=== PATIENT | male | born 1950 | race Caucasian/White ===

== ENCOUNTER 2021-02-05 12:28 | Outpatient (CLI) | payer MEDICARE, BC ==
[2021-02-05 12:57] LABS: INR-International Normal Ratio 1.7; PTT 35.6 sec (22.9-36.1)
[2021-02-05 13:00] LABS: #Eosinphils 0.2 thou/uL (0.0-0.7); #Lymphocytes 1.7 thou/uL (1.20-3.40); #Monocytes 0.4 thou/uL (0.11-0.59); #Neutrophils 2.7 thou/uL (1.40-6.50); %Basophils 0.8 % (0.0-1.0); %Eosinophils 3.2 % (0.0-10.0); %Lymphocytes 34.4 % (21.0-51.0); %Monocytes 7.6 % (0.0-10.0); %Neutrophils 54.1 % (42.0-75.0); Hemoglobin 11.6 g/dL (14.0-18.0); Mean Corpuscular HGB CONC 29.8 g/dL (32.0-36.0); Mean Corpuscular Hemoglobin 27.9 pg (27.0-31.0); Mean Corpuscular Volume 93.6 fL (78.0-98.0); Mean Platelet Volume 11.5 fL (7.4-10.4); Platelet Count 126 thou/uL (130-400); RBC Distribution Width 12.8 % (11.5-14.5); Red Blood Cell (RBC) Count 4.15 mill/uL (4.70-6.10)
[2021-02-05 13:09] LABS: ALT (SGPT) 15 U/L (8-55); AST (SGOT) 18 U/L (5-34); Albumin 3.2 g/dL (3.4-4.8); Alkaline Phosphatase 80 U/L (40-110); Anion Gap 12 mmol/L (10-20); BUN (Urea Nitrogen) 20 mg/dL (8.4-25.7); Calc. Creatinine Clearance 0 mL/min (70-130); Calcium 8.3 mg/dL (7.8-10.44); Carbon Dioxide 27 mmol/L (23-31); Cardiac Risk 3.2 (Less than 4.5); Chloride 107 mmol/L (98-107); Cholesterol 116 mg/dl (< 200 Desired); Globulin 3.1 g/dL (2.4-3.5); Glucose 69 mg/dL (83-110); HDL Cholesterol 36 mg/dL (>60 Neg Risk); LDL Cholesterol, Calculated 73 mg/dL; Potassium 4.3 mmol/L (3.5-5.1); Protein, Total 6.3 g/dL (5.8-8.1); Sodium 142 mmol/L (136-145); Triglycerides 33 mg/dL (Less than 150)
[2021-02-05 13:16] LABS: Anisocytosis SLIGHT = 6-15 cells (100X) (0-5/hpf); Platelet Morphology Comment Appears Adequate
[2021-02-05 17:23] LABS: Free T4 (Free Thyroxine) 1.12 ng/dL (0.70-1.48)
[2021-02-05 17:24] LABS: Vitamin D, 25 Hydroxy 32.7 ng/ml (> 30.0)
== END 2021-02-05 12:29 | disposition home or self-care (01) ==
LOC: MADLAB 12:28
PROVIDERS: ATTEND Family Medicine
DX: Z51.81 Encounter for therapeutic drug level monitoring (principal); E78.2 Mixed hyperlipidemia; R29.6 Repeated falls; G20 Parkinson's disease; F02.80 Dementia in other diseases classified elsewhere, unspecified severity, without behavioral disturbance, psychotic disturbance, mood disturbance, and anxiety; E03.9 Hypothyroidism, unspecified; D69.6 Thrombocytopenia, unspecified; E55.9 Vitamin D deficiency, unspecified; Z79.01 Long term (current) use of anticoagulants
CPT/HCPCS: 36415; 80053; 80061; 82306; 84439; 84443; 85025; 85610; 85730

== ENCOUNTER 2022-10-10 15:53 | Inpatient (IN) | payer MEDICARE, BC ==
[2022-10-10 20:16] LABS: INR-International Normal Ratio 1.3; Prothrombin Time 16.8 sec (12.0-14.7)
[2022-10-10] MEDS ORDERED: Warfarin Sodium 2 MG TAB PO SCH (20:45)
[2022-10-10] MEDS: Furosemide 20 MG TAB PO SCH (21:38)
[2022-10-10] MEDS: Amiodarone 200 MG TAB PO SCH (21:38)
[2022-10-10] MEDS: busPIRone HCl 5 MG TAB PO SCH (21:38)
[2022-10-10] MEDS: Cholecalciferol 1,000 UNITS (25 MCG) TAB PO SCH (21:38)
[2022-10-10] MEDS: Carbidopa/Levodopa 25-100 mg Tablet PO SCH (21:39)
[2022-10-10] MEDS: Midodrine HCl 5 MG TAB PO SCH (21:39)
[2022-10-10] MEDS: Gabapentin 300 MG CAP PO SCH (21:39)
[2022-10-10] MEDS: traZODone HCl 50 MG TAB PO SCH (21:39)
[2022-10-11] MEDS: Carvedilol 3.125 MG TAB PO SCH ×4 (01:15→22:45)
[2022-10-11] MEDS ORDERED: Silver Sulfadiazine 50 GM TUBE ONE (01:36)
[2022-10-11 05:27] LABS: INR-International Normal Ratio 1.4; Prothrombin Time 17.7 sec (12.0-14.7)
[2022-10-11] MEDS: Levothyroxine Sodium 100 MCG TAB PO SCH (06:27)
[2022-10-11] MEDS: Cholecalciferol 1,000 UNITS (25 MCG) TAB PO SCH ×3 (09:55→20:57)
[2022-10-11] MEDS: Amiodarone 200 MG TAB PO SCH ×3 (09:55→20:58)
[2022-10-11] MEDS: busPIRone HCl 5 MG TAB PO SCH ×3 (09:55→20:58)
[2022-10-11] MEDS: Carbidopa/Levodopa 25-100 mg Tablet PO SCH ×4 (09:55→20:58)
[2022-10-11] MEDS: Furosemide 20 MG TAB PO SCH ×3 (09:55→20:58)
[2022-10-11] MEDS: Midodrine HCl 5 MG TAB PO SCH ×4 (09:55→20:58)
[2022-10-11] MEDS: ZINC OXIDE 20% TOP SCH ×3 (09:56→21:30)
[2022-10-11] MEDS ORDERED: Warfarin Sodium 2 MG TAB PO SCH (17:00)
[2022-10-11] MEDS: traZODone HCl 50 MG TAB PO SCH (20:58)
[2022-10-11] MEDS: Gabapentin 300 MG CAP PO SCH (20:59)
[2022-10-12] MEDS: Levothyroxine Sodium 100 MCG TAB PO SCH (05:57)
[2022-10-12 06:03] LABS: INR-International Normal Ratio 1.4; Prothrombin Time 17.9 sec (12.0-14.7)
[2022-10-12] MEDS: busPIRone HCl 5 MG TAB PO SCH ×2 (09:34→21:07)
[2022-10-12] MEDS: Amiodarone 200 MG TAB PO SCH (09:34)
[2022-10-12] MEDS: Carvedilol 3.125 MG TAB PO SCH ×2 (09:34→21:07)
[2022-10-12] MEDS: Midodrine HCl 5 MG TAB PO SCH ×3 (09:34→21:10)
[2022-10-12] MEDS: Furosemide 20 MG TAB PO SCH ×2 (09:34→21:08)
[2022-10-12] MEDS: Cholecalciferol 1,000 UNITS (25 MCG) TAB PO SCH ×2 (09:34→21:07)
[2022-10-12] MEDS: Carbidopa/Levodopa 25-100 mg Tablet PO SCH ×3 (09:34→21:07)
[2022-10-12] MEDS: ZINC OXIDE 20% TOP SCH ×3 (09:35→21:10)
[2022-10-12] MEDS ORDERED: Warfarin Sodium 2 MG TAB PO SCH (17:00)
[2022-10-12] MEDS ORDERED: Warfarin Sodium 5 MG TAB PO SCH (17:00)
[2022-10-12] MEDS: Gabapentin 300 MG CAP PO SCH (21:08)
[2022-10-12] MEDS: traZODone HCl 50 MG TAB PO SCH (21:10)
[2022-10-12] MEDS: Melatonin 3 MG TAB PO PRN (21:11)
[2022-10-13] MEDS: Levothyroxine Sodium 100 MCG TAB PO SCH (05:17)
[2022-10-13 05:38] LABS: INR-International Normal Ratio 1.6; Prothrombin Time 19.5 sec (12.0-14.7)
[2022-10-13] MEDS: Midodrine HCl 5 MG TAB PO SCH ×3 (08:40→20:27)
[2022-10-13] MEDS: Cholecalciferol 1,000 UNITS (25 MCG) TAB PO SCH ×2 (08:40→20:27)
[2022-10-13] MEDS: Amiodarone 200 MG TAB PO SCH (08:40)
[2022-10-13] MEDS: Carbidopa/Levodopa 25-100 mg Tablet PO SCH ×3 (08:41→20:26)
[2022-10-13] MEDS: busPIRone HCl 5 MG TAB PO SCH ×2 (08:41→20:27)
[2022-10-13] MEDS: Carvedilol 3.125 MG TAB PO SCH ×2 (09:01→20:29)
[2022-10-13] MEDS: Furosemide 20 MG TAB PO SCH ×2 (09:01→20:28)
[2022-10-13] MEDS: ZINC OXIDE 20% TOP SCH (11:15)
[2022-10-13] MEDS ORDERED: Lansoprazole 3 MG/ML ORAL SUSPENSION PO SCH (11:45)
[2022-10-13] MEDS: Warfarin Sodium 5 MG TAB PO SCH (15:59)
[2022-10-13] MEDS ORDERED: Warfarin Sodium 2 MG TAB PO SCH (17:00)
[2022-10-13] MEDS: traZODone HCl 50 MG TAB PO SCH (20:27)
[2022-10-13] MEDS: Gabapentin 300 MG CAP PO SCH (20:27)
[2022-10-13] MEDS: Melatonin 3 MG TAB PO PRN (20:31)
[2022-10-14] MEDS: Levothyroxine Sodium 100 MCG TAB PO SCH (05:17)
[2022-10-14 05:21] LABS: Hemoglobin 11.7 g/dL (14.0-18.0); Platelet Count 167 10x3/uL (130-400)
[2022-10-14 05:36] LABS: INR-International Normal Ratio 1.7; Prothrombin Time 20.8 sec (12.0-14.7)
[2022-10-14] MEDS: Amiodarone 200 MG TAB PO SCH (08:10)
[2022-10-14] MEDS: Midodrine HCl 5 MG TAB PO SCH ×3 (08:10→21:16)
[2022-10-14] MEDS: Carbidopa/Levodopa 25-100 mg Tablet PO SCH ×3 (08:10→21:16)
[2022-10-14] MEDS: busPIRone HCl 5 MG TAB PO SCH ×2 (08:10→17:11)
[2022-10-14] MEDS: Carvedilol 3.125 MG TAB PO SCH ×2 (08:10→21:16)
[2022-10-14] MEDS: Cholecalciferol 1,000 UNITS (25 MCG) TAB PO SCH ×2 (08:10→21:17)
[2022-10-14] MEDS: Furosemide 20 MG TAB PO SCH ×2 (08:10→21:17)
[2022-10-14] MEDS: Lansoprazole 3 MG/ML ORAL SUSPENSION PO SCH (08:11)
[2022-10-14] MEDS: Senokot S 8.6-50 MG TAB PO PRN ×2 (15:01→21:18)
[2022-10-14] MEDS ORDERED: traZODone HCl 50 MG TAB PO SCH (17:00)
[2022-10-14] MEDS ORDERED: Warfarin Sodium 2 MG TAB PO SCH (17:00)
[2022-10-14] MEDS: Warfarin Sodium 5 MG TAB PO SCH (17:07)
[2022-10-14] MEDS: traZODone HCl 50 MG TAB PO SCH (21:16)
[2022-10-14] MEDS: Gabapentin 300 MG CAP PO SCH (21:17)
[2022-10-14] MEDS: Melatonin 3 MG TAB PO PRN (21:18)
[2022-10-15 05:25] LABS: INR-International Normal Ratio 2.1
[2022-10-15] MEDS: Levothyroxine Sodium 100 MCG TAB PO SCH (05:36)
[2022-10-15] MEDS: Carbidopa/Levodopa 25-100 mg Tablet PO SCH ×3 (09:02→20:46)
[2022-10-15] MEDS: Amiodarone 200 MG TAB PO SCH (09:02)
[2022-10-15] MEDS: busPIRone HCl 5 MG TAB PO SCH ×2 (09:02→17:33)
[2022-10-15] MEDS: Cholecalciferol 1,000 UNITS (25 MCG) TAB PO SCH ×2 (09:02→20:46)
[2022-10-15] MEDS: Midodrine HCl 5 MG TAB PO SCH ×3 (09:02→20:44)
[2022-10-15] MEDS: Furosemide 20 MG TAB PO SCH ×2 (09:03→20:44)
[2022-10-15] MEDS: Carvedilol 3.125 MG TAB PO SCH ×2 (09:03→20:46)
[2022-10-15] MEDS: Lansoprazole 3 MG/ML ORAL SUSPENSION PO SCH (09:03)
[2022-10-15] MEDS: Warfarin Sodium 5 MG TAB PO SCH (17:33)
[2022-10-15] MEDS ORDERED: Lantiseptic Ointment 130 GM JAR TOP PRN (20:30)
[2022-10-15] MEDS: Melatonin 3 MG TAB PO PRN (20:44)
[2022-10-15] MEDS: Senokot S 8.6-50 MG TAB PO PRN (20:44)
[2022-10-15] MEDS: traZODone HCl 50 MG TAB PO SCH (20:44)
[2022-10-15] MEDS: Gabapentin 300 MG CAP PO SCH (20:45)
[2022-10-15] MEDS: Lantiseptic Ointment 130 GM JAR TOP SCH (20:48)
[2022-10-15] MEDS ORDERED: Clotrimazole 1% Cream 15 GM TUBE TOP PRN (20:52)
[2022-10-15] MEDS: Clotrimazole 1% Cream 15 GM TUBE TOP SCH (21:06)
[2022-10-16 05:13] LABS: INR-International Normal Ratio 2.1; Prothrombin Time 24.5 sec (12.0-14.7)
[2022-10-16] MEDS: Levothyroxine Sodium 100 MCG TAB PO SCH (05:55)
[2022-10-16] MEDS: Carvedilol 3.125 MG TAB PO SCH ×2 (09:08→20:37)
[2022-10-16] MEDS: Lansoprazole 3 MG/ML ORAL SUSPENSION PO SCH (09:08)
[2022-10-16] MEDS: Cholecalciferol 1,000 UNITS (25 MCG) TAB PO SCH ×2 (09:08→20:34)
[2022-10-16] MEDS: Furosemide 20 MG TAB PO SCH ×2 (09:08→20:37)
[2022-10-16] MEDS: Amiodarone 200 MG TAB PO SCH (09:08)
[2022-10-16] MEDS: Carbidopa/Levodopa 25-100 mg Tablet PO SCH ×3 (09:08→20:35)
[2022-10-16] MEDS: Midodrine HCl 5 MG TAB PO SCH ×3 (09:09→20:36)
[2022-10-16] MEDS: busPIRone HCl 5 MG TAB PO SCH ×2 (09:09→16:52)
[2022-10-16] MEDS: Clotrimazole 1% Cream 15 GM TUBE TOP SCH ×2 (09:09→20:37)
[2022-10-16] MEDS: Lantiseptic Ointment 130 GM JAR TOP SCH ×2 (09:09→20:37)
[2022-10-16] MEDS: Warfarin Sodium 5 MG TAB PO SCH (16:52)
[2022-10-16] MEDS: Melatonin 3 MG TAB PO PRN (20:34)
[2022-10-16] MEDS: Senokot S 8.6-50 MG TAB PO PRN (20:35)
[2022-10-16] MEDS: traZODone HCl 50 MG TAB PO SCH (20:35)
[2022-10-16] MEDS: Gabapentin 300 MG CAP PO SCH (20:36)
[2022-10-17] MEDS: Levothyroxine Sodium 100 MCG TAB PO SCH (05:32)
[2022-10-17 05:33] LABS: Hemoglobin 11.4 g/dL (14.0-18.0); Platelet Count 162 10x3/uL (130-400)
[2022-10-17 05:34] LABS: INR-International Normal Ratio 2.4; Prothrombin Time 26.8 sec (12.0-14.7)
[2022-10-17 05:45] LABS: Anion Gap 14 mmol/L (10-20); BUN (Urea Nitrogen) 19 mg/dL (8.4-25.7); Calc. Creatinine Clearance 94 mL/min (70-130); Calcium 8.5 mg/dL (7.8-10.44); Carbon Dioxide 28 mmol/L (23-31); Chloride 103 mmol/L (98-107); Estimated GFR 93; Glucose 82 mg/dL (83-110); Potassium 3.9 mmol/L (3.5-5.1); Sodium 141 mmol/L (136-145)
[2022-10-17] MEDS: Cholecalciferol 1,000 UNITS (25 MCG) TAB PO SCH ×2 (08:27→20:41)
[2022-10-17] MEDS: busPIRone HCl 5 MG TAB PO SCH ×3 (08:28→16:43)
[2022-10-17] MEDS: Senokot S 8.6-50 MG TAB PO PRN (08:28)
[2022-10-17] MEDS: Midodrine HCl 5 MG TAB PO SCH ×3 (08:28→20:41)
[2022-10-17] MEDS: Amiodarone 200 MG TAB PO SCH (08:28)
[2022-10-17] MEDS: Carbidopa/Levodopa 25-100 mg Tablet PO SCH ×3 (08:29→20:41)
[2022-10-17] MEDS: Lansoprazole 3 MG/ML ORAL SUSPENSION PO SCH (08:30)
[2022-10-17] MEDS: Clotrimazole 1% Cream 15 GM TUBE TOP SCH ×2 (08:33→20:43)
[2022-10-17] MEDS: Lantiseptic Ointment 130 GM JAR TOP SCH ×2 (08:34→20:52)
[2022-10-17] MEDS: Carvedilol 3.125 MG TAB PO SCH ×2 (09:00→20:20)
[2022-10-17] MEDS: Furosemide 20 MG TAB PO SCH ×2 (09:00→21:30)
[2022-10-17] MEDS ORDERED: Warfarin Sodium 2 MG TAB PO SCH (17:00)
[2022-10-17] MEDS: traZODone HCl 50 MG TAB PO SCH (20:42)
[2022-10-17] MEDS: Gabapentin 300 MG CAP PO SCH (20:42)
[2022-10-18 05:15] LABS: INR-International Normal Ratio 2.3; Prothrombin Time 26.3 sec (12.0-14.7)
[2022-10-18] MEDS: Levothyroxine Sodium 100 MCG TAB PO SCH (05:22)
[2022-10-18] MEDS: Lansoprazole 3 MG/ML ORAL SUSPENSION PO SCH (09:14)
[2022-10-18] MEDS: Midodrine HCl 5 MG TAB PO SCH ×3 (09:14→20:11)
[2022-10-18] MEDS: Carbidopa/Levodopa 25-100 mg Tablet PO SCH ×3 (09:14→20:11)
[2022-10-18] MEDS: Amiodarone 200 MG TAB PO SCH (09:15)
[2022-10-18] MEDS: Cholecalciferol 1,000 UNITS (25 MCG) TAB PO SCH ×2 (09:15→20:10)
[2022-10-18] MEDS: Lantiseptic Ointment 130 GM JAR TOP SCH ×2 (09:15→20:11)
[2022-10-18] MEDS: busPIRone HCl 5 MG TAB PO SCH ×2 (09:15→17:37)
[2022-10-18] MEDS: Clotrimazole 1% Cream 15 GM TUBE TOP SCH ×2 (09:17→20:11)
[2022-10-18] MEDS: Carvedilol 3.125 MG TAB PO SCH ×2 (10:22→20:10)
[2022-10-18] MEDS: Furosemide 20 MG TAB PO SCH (12:28)
[2022-10-18] MEDS ORDERED: Warfarin Sodium 2 MG TAB PO SCH ×2 (17:00)
[2022-10-18] MEDS: traZODone HCl 50 MG TAB PO SCH (20:11)
[2022-10-18] MEDS: Gabapentin 300 MG CAP PO SCH (20:12)
[2022-10-19 05:48] LABS: INR-International Normal Ratio 2.3; Prothrombin Time 26.3 sec (12.0-14.7)
[2022-10-19] MEDS: Levothyroxine Sodium 100 MCG TAB PO SCH (06:13)
[2022-10-19] MEDS: Lansoprazole 3 MG/ML ORAL SUSPENSION PO SCH (09:08)
[2022-10-19] MEDS: Carvedilol 3.125 MG TAB PO SCH ×2 (09:09→19:21)
[2022-10-19] MEDS: Midodrine HCl 5 MG TAB PO SCH ×3 (09:09→20:47)
[2022-10-19] MEDS: Carbidopa/Levodopa 25-100 mg Tablet PO SCH ×3 (09:09→20:46)
[2022-10-19] MEDS: Cholecalciferol 1,000 UNITS (25 MCG) TAB PO SCH ×2 (09:09→20:47)
[2022-10-19] MEDS: Amiodarone 200 MG TAB PO SCH (09:09)
[2022-10-19] MEDS: busPIRone HCl 5 MG TAB PO SCH ×2 (09:09→17:09)
[2022-10-19] MEDS: Clotrimazole 1% Cream 15 GM TUBE TOP SCH ×2 (09:10→20:48)
[2022-10-19] MEDS: Lantiseptic Ointment 130 GM JAR TOP SCH ×2 (09:10→20:49)
[2022-10-19] MEDS: Furosemide 20 MG TAB PO SCH (12:01)
[2022-10-19] MEDS ORDERED: Warfarin Sodium 2 MG TAB PO SCH (17:00)
[2022-10-19] MEDS: Warfarin Sodium 2 MG TAB PO SCH (17:09)
[2022-10-19] MEDS: Gabapentin 300 MG CAP PO SCH (20:47)
[2022-10-19] MEDS: traZODone HCl 50 MG TAB PO SCH (20:47)
[2022-10-20 05:26] LABS: #Basophils 0.1 thou/uL (0.0-0.2); #Eosinphils 0.1 thou/uL (0.0-0.7); #Lymphocytes 2.3 thou/uL (1.20-3.40); #Monocytes 0.7 thou/uL (0.11-0.59); #Neutrophils 2.7 thou/uL (1.40-6.50); %Eosinophils 1.8 % (0.0-10.0); %Lymphocytes 39.9 % (21.0-51.0); %Monocytes 11.1 % (0.0-10.0); %Neutrophils 46.3 % (42.0-75.0); Hemoglobin 11.6 g/dL (14.0-18.0); Mean Corpuscular HGB CONC 32.3 g/dL (32.0-36.0); Mean Corpuscular Hemoglobin 29.3 pg (27.0-31.0); Mean Corpuscular Volume 90.8 fl (78.0-98.0); Mean Platelet Volume 10.4 fL (7.4-10.4); Platelet Count 150 10x3/uL (130-400); Red Blood Cell (RBC) Count 3.95 mill/uL (4.70-6.10); White Blood Cell (WBC) Count 5.8 10x3/uL (4.8-10.8)
[2022-10-20 05:29] LABS: INR-International Normal Ratio 2.4; Prothrombin Time 27.6 sec (12.0-14.7)
[2022-10-20] MEDS: Levothyroxine Sodium 100 MCG TAB PO SCH (05:37)
[2022-10-20 05:41] LABS: Anion Gap 10 mmol/L (10-20); BUN (Urea Nitrogen) 20 mg/dL (8.4-25.7); Calc. Creatinine Clearance 94 mL/min (70-130); Calcium 8.7 mg/dL (7.8-10.44); Carbon Dioxide 29 mmol/L (23-31); Chloride 103 mmol/L (98-107); Estimated GFR 93; Glucose 79 mg/dL (83-110); Sodium 138 mmol/L (136-145)
[2022-10-20] MEDS: Lansoprazole 3 MG/ML ORAL SUSPENSION PO SCH (08:57)
[2022-10-20] MEDS: Carbidopa/Levodopa 25-100 mg Tablet PO SCH ×3 (08:58→20:35)
[2022-10-20] MEDS: Carvedilol 3.125 MG TAB PO SCH ×2 (08:58→20:35)
[2022-10-20] MEDS: Midodrine HCl 5 MG TAB PO SCH ×3 (08:58→20:34)
[2022-10-20] MEDS: Cholecalciferol 1,000 UNITS (25 MCG) TAB PO SCH ×2 (08:58→20:35)
[2022-10-20] MEDS: busPIRone HCl 5 MG TAB PO SCH ×2 (08:58→17:56)
[2022-10-20] MEDS: Amiodarone 200 MG TAB PO SCH (08:58)
[2022-10-20] MEDS: Clotrimazole 1% Cream 15 GM TUBE TOP SCH ×2 (09:03→20:37)
[2022-10-20] MEDS: Lantiseptic Ointment 130 GM JAR TOP SCH ×2 (09:03→20:38)
[2022-10-20] MEDS: Furosemide 20 MG TAB PO SCH (12:31)
[2022-10-20] MEDS: Warfarin Sodium 2 MG TAB PO SCH (17:57)
[2022-10-20] MEDS: Gabapentin 300 MG CAP PO SCH (20:35)
[2022-10-20] MEDS: traZODone HCl 50 MG TAB PO SCH (20:37)
[2022-10-20] MEDS: Melatonin 3 MG TAB PO PRN (23:20)
[2022-10-21] MEDS: Levothyroxine Sodium 100 MCG TAB PO SCH (05:49)
[2022-10-21] MEDS: busPIRone HCl 5 MG TAB PO SCH ×2 (08:59→17:01)
[2022-10-21] MEDS: Midodrine HCl 5 MG TAB PO SCH ×3 (08:59→20:25)
[2022-10-21] MEDS: Amiodarone 200 MG TAB PO SCH (08:59)
[2022-10-21] MEDS: Lansoprazole 3 MG/ML ORAL SUSPENSION PO SCH (09:00)
[2022-10-21] MEDS: Carbidopa/Levodopa 25-100 mg Tablet PO SCH ×3 (09:00→20:26)
[2022-10-21] MEDS: Cholecalciferol 1,000 UNITS (25 MCG) TAB PO SCH ×2 (09:00→20:25)
[2022-10-21] MEDS: Clotrimazole 1% Cream 15 GM TUBE TOP SCH ×2 (09:01→20:27)
[2022-10-21] MEDS: Lantiseptic Ointment 130 GM JAR TOP SCH ×2 (09:02→20:28)
[2022-10-21] MEDS: Carvedilol 3.125 MG TAB PO SCH ×2 (09:11→20:23)
[2022-10-21] MEDS: Furosemide 20 MG TAB PO SCH (16:02)
[2022-10-21] MEDS: Warfarin Sodium 2 MG TAB PO SCH (17:01)
[2022-10-21] MEDS: traZODone HCl 50 MG TAB PO SCH (20:25)
[2022-10-21] MEDS: Melatonin 3 MG TAB PO PRN (20:25)
[2022-10-21] MEDS: Gabapentin 300 MG CAP PO SCH (20:26)
[2022-10-22] MEDS: Levothyroxine Sodium 100 MCG TAB PO SCH (05:19)
[2022-10-22] MEDS: Cholecalciferol 1,000 UNITS (25 MCG) TAB PO SCH ×2 (09:14→20:11)
[2022-10-22] MEDS: Midodrine HCl 5 MG TAB PO SCH ×3 (09:14→20:11)
[2022-10-22] MEDS: Carbidopa/Levodopa 25-100 mg Tablet PO SCH ×3 (09:14→20:11)
[2022-10-22] MEDS: Amiodarone 200 MG TAB PO SCH (09:16)
[2022-10-22] MEDS: busPIRone HCl 5 MG TAB PO SCH ×2 (09:16→17:07)
[2022-10-22] MEDS: Lansoprazole 3 MG/ML ORAL SUSPENSION PO SCH (09:20)
[2022-10-22] MEDS: Carvedilol 3.125 MG TAB PO SCH ×2 (09:20→20:12)
[2022-10-22] MEDS: Lantiseptic Ointment 130 GM JAR TOP SCH ×2 (09:22→20:13)
[2022-10-22] MEDS: Clotrimazole 1% Cream 15 GM TUBE TOP SCH ×2 (09:22→20:13)
[2022-10-22] MEDS: Furosemide 20 MG TAB PO SCH (12:07)
[2022-10-22] MEDS: Warfarin Sodium 2 MG TAB PO SCH (17:07)
[2022-10-22] MEDS: Melatonin 3 MG TAB PO PRN (20:09)
[2022-10-22] MEDS: Gabapentin 300 MG CAP PO SCH (20:10)
[2022-10-22] MEDS: traZODone HCl 50 MG TAB PO SCH (20:10)
[2022-10-23 05:12] LABS: Hemoglobin 11.5 g/dL (14.0-18.0); Platelet Count 121 10x3/uL (130-400)
[2022-10-23 05:21] LABS: INR-International Normal Ratio 2.7
[2022-10-23] MEDS: Levothyroxine Sodium 100 MCG TAB PO SCH (05:31)
[2022-10-23] MEDS: Cholecalciferol 1,000 UNITS (25 MCG) TAB PO SCH ×2 (08:18→20:06)
[2022-10-23] MEDS: Amiodarone 200 MG TAB PO SCH (08:18)
[2022-10-23] MEDS: Carbidopa/Levodopa 25-100 mg Tablet PO SCH ×3 (08:18→20:06)
[2022-10-23] MEDS: Carvedilol 3.125 MG TAB PO SCH ×2 (08:18→20:07)
[2022-10-23] MEDS: Midodrine HCl 5 MG TAB PO SCH ×3 (08:18→20:06)
[2022-10-23] MEDS: busPIRone HCl 5 MG TAB PO SCH ×2 (08:18→16:59)
[2022-10-23] MEDS: Lantiseptic Ointment 130 GM JAR TOP SCH ×2 (08:19→20:07)
[2022-10-23] MEDS: Clotrimazole 1% Cream 15 GM TUBE TOP SCH ×2 (08:19→20:07)
[2022-10-23] MEDS: Lansoprazole 3 MG/ML ORAL SUSPENSION PO SCH (08:24)
[2022-10-23] MEDS: Furosemide 20 MG TAB PO SCH (12:18)
[2022-10-23] MEDS: Warfarin Sodium 2 MG TAB PO SCH (16:59)
[2022-10-23] MEDS: Melatonin 3 MG TAB PO PRN (20:05)
[2022-10-23] MEDS: Gabapentin 300 MG CAP PO SCH (20:06)
[2022-10-23] MEDS: traZODone HCl 50 MG TAB PO SCH (20:06)
[2022-10-24] MEDS: Levothyroxine Sodium 100 MCG TAB PO SCH (05:51)
[2022-10-24] MEDS: Amiodarone 200 MG TAB PO SCH (09:02)
[2022-10-24] MEDS: Midodrine HCl 5 MG TAB PO SCH ×3 (09:02→21:46)
[2022-10-24] MEDS: Cholecalciferol 1,000 UNITS (25 MCG) TAB PO SCH ×2 (09:02→21:46)
[2022-10-24] MEDS: Lansoprazole 3 MG/ML ORAL SUSPENSION PO SCH (09:02)
[2022-10-24] MEDS: busPIRone HCl 5 MG TAB PO SCH ×2 (09:02→17:05)
[2022-10-24] MEDS: Clotrimazole 1% Cream 15 GM TUBE TOP SCH ×2 (09:03→21:59)
[2022-10-24] MEDS: Lantiseptic Ointment 130 GM JAR TOP SCH ×2 (09:03→21:59)
[2022-10-24] MEDS: Carbidopa/Levodopa 25-100 mg Tablet PO SCH ×3 (09:04→22:00)
[2022-10-24] MEDS: Carvedilol 3.125 MG TAB PO SCH (09:09)
[2022-10-24] MEDS: Furosemide 20 MG TAB PO SCH ×2 (12:11→12:24)
[2022-10-24] MEDS: Warfarin Sodium 2 MG TAB PO SCH (17:06)
[2022-10-24] MEDS: traZODone HCl 50 MG TAB PO SCH (21:46)
[2022-10-24] MEDS: Gabapentin 300 MG CAP PO SCH (21:47)
[2022-10-25] MEDS: Levothyroxine Sodium 100 MCG TAB PO SCH (06:49)
[2022-10-25] MEDS: Lansoprazole 3 MG/ML ORAL SUSPENSION PO SCH (09:23)
[2022-10-25] MEDS: Carbidopa/Levodopa 25-100 mg Tablet PO SCH ×3 (09:24→21:17)
[2022-10-25] MEDS: Amiodarone 200 MG TAB PO SCH (09:24)
[2022-10-25] MEDS: Midodrine HCl 5 MG TAB PO SCH ×3 (09:24→21:18)
[2022-10-25] MEDS: Cholecalciferol 1,000 UNITS (25 MCG) TAB PO SCH ×2 (09:24→21:18)
[2022-10-25] MEDS: busPIRone HCl 5 MG TAB PO SCH ×2 (09:24→17:19)
[2022-10-25] MEDS: Clotrimazole 1% Cream 15 GM TUBE TOP SCH ×2 (09:25→21:19)
[2022-10-25] MEDS: Lantiseptic Ointment 130 GM JAR TOP SCH ×2 (09:25→21:19)
[2022-10-25] MEDS: Furosemide 20 MG TAB PO SCH (12:08)
[2022-10-25] MEDS: Warfarin Sodium 2 MG TAB PO SCH (17:19)
[2022-10-25] MEDS: traZODone HCl 50 MG TAB PO SCH (21:18)
[2022-10-25] MEDS: Gabapentin 300 MG CAP PO SCH (21:18)
[2022-10-26 05:23] LABS: Hemoglobin 12.7 g/dL (14.0-18.0); Platelet Count 121 10x3/uL (130-400)
[2022-10-26] MEDS: Levothyroxine Sodium 100 MCG TAB PO SCH (05:26)
[2022-10-26 05:40] LABS: INR-International Normal Ratio 2.7; Prothrombin Time 29.7 sec (12.0-14.7)
[2022-10-26] MEDS: busPIRone HCl 5 MG TAB PO SCH ×2 (09:32→15:57)
[2022-10-26] MEDS: Lansoprazole 3 MG/ML ORAL SUSPENSION PO SCH (09:32)
[2022-10-26] MEDS: Carbidopa/Levodopa 25-100 mg Tablet PO SCH ×3 (09:32→21:36)
[2022-10-26] MEDS: Midodrine HCl 5 MG TAB PO SCH ×3 (09:32→21:36)
[2022-10-26] MEDS: Amiodarone 200 MG TAB PO SCH (09:32)
[2022-10-26] MEDS: Cholecalciferol 1,000 UNITS (25 MCG) TAB PO SCH ×2 (09:32→21:36)
[2022-10-26] MEDS: Lantiseptic Ointment 130 GM JAR TOP SCH ×2 (09:33→21:39)
[2022-10-26] MEDS: Clotrimazole 1% Cream 15 GM TUBE TOP SCH ×2 (09:33→21:38)
[2022-10-26] MEDS: Furosemide 20 MG TAB PO SCH (13:28)
[2022-10-26] MEDS: Warfarin Sodium 2 MG TAB PO SCH (15:57)
[2022-10-26] MEDS: Senokot S 8.6-50 MG TAB PO PRN (17:14)
[2022-10-26] MEDS: traZODone HCl 50 MG TAB PO SCH (21:36)
[2022-10-26] MEDS: Melatonin 3 MG TAB PO PRN (21:37)
[2022-10-26] MEDS: Gabapentin 300 MG CAP PO SCH (21:38)
[2022-10-27] MEDS: Levothyroxine Sodium 100 MCG TAB PO SCH (05:55)
[2022-10-27] MEDS: Midodrine HCl 5 MG TAB PO SCH ×3 (08:44→21:02)
[2022-10-27] MEDS: Carbidopa/Levodopa 25-100 mg Tablet PO SCH ×3 (08:44→21:02)
[2022-10-27] MEDS: Amiodarone 200 MG TAB PO SCH (08:44)
[2022-10-27] MEDS: busPIRone HCl 5 MG TAB PO SCH ×2 (08:45→17:16)
[2022-10-27] MEDS: Cholecalciferol 1,000 UNITS (25 MCG) TAB PO SCH ×2 (08:45→21:02)
[2022-10-27] MEDS: Lansoprazole 3 MG/ML ORAL SUSPENSION PO SCH (08:49)
[2022-10-27] MEDS: Clotrimazole 1% Cream 15 GM TUBE TOP SCH ×2 (08:49→21:03)
[2022-10-27] MEDS: Lantiseptic Ointment 130 GM JAR TOP SCH ×2 (08:50→21:03)
[2022-10-27] MEDS: Furosemide 20 MG TAB PO SCH (11:47)
[2022-10-27] MEDS: Warfarin Sodium 2 MG TAB PO SCH (17:16)
[2022-10-27] MEDS: traZODone HCl 50 MG TAB PO SCH (21:02)
[2022-10-27] MEDS: Gabapentin 300 MG CAP PO SCH (21:02)
[2022-10-28] MEDS: Levothyroxine Sodium 100 MCG TAB PO SCH (05:35)
[2022-10-28] MEDS: Amiodarone 200 MG TAB PO SCH (08:23)
[2022-10-28] MEDS: Cholecalciferol 1,000 UNITS (25 MCG) TAB PO SCH ×2 (08:23→20:36)
[2022-10-28] MEDS: Midodrine HCl 5 MG TAB PO SCH ×3 (08:23→20:36)
[2022-10-28] MEDS: busPIRone HCl 5 MG TAB PO SCH ×2 (08:23→16:29)
[2022-10-28] MEDS: Carbidopa/Levodopa 25-100 mg Tablet PO SCH ×3 (08:23→20:35)
[2022-10-28] MEDS: Lansoprazole 3 MG/ML ORAL SUSPENSION PO SCH (08:23)
[2022-10-28] MEDS: Clotrimazole 1% Cream 15 GM TUBE TOP SCH ×2 (08:24→20:37)
[2022-10-28] MEDS: Lantiseptic Ointment 130 GM JAR TOP SCH ×2 (08:24→20:36)
[2022-10-28] MEDS: Furosemide 20 MG TAB PO SCH (12:39)
[2022-10-28] MEDS: Warfarin Sodium 2 MG TAB PO SCH (16:29)
[2022-10-28] MEDS: Gabapentin 300 MG CAP PO SCH (20:35)
[2022-10-28] MEDS: traZODone HCl 50 MG TAB PO SCH (20:35)
[2022-10-29 05:11] LABS: Hemoglobin 11.7 g/dL (14.0-18.0); Platelet Count 96 10x3/uL (130-400)
[2022-10-29 05:20] LABS: INR-International Normal Ratio 3.2
[2022-10-29] MEDS: Levothyroxine Sodium 100 MCG TAB PO SCH (05:30)
[2022-10-29] MEDS: Carbidopa/Levodopa 25-100 mg Tablet PO SCH ×3 (08:20→20:54)
[2022-10-29] MEDS: Lansoprazole 3 MG/ML ORAL SUSPENSION PO SCH (08:20)
[2022-10-29] MEDS: Midodrine HCl 5 MG TAB PO SCH ×3 (08:20→20:54)
[2022-10-29] MEDS: Cholecalciferol 1,000 UNITS (25 MCG) TAB PO SCH ×2 (08:20→20:54)
[2022-10-29] MEDS: busPIRone HCl 5 MG TAB PO SCH ×2 (08:21→16:15)
[2022-10-29] MEDS: Amiodarone 200 MG TAB PO SCH (08:21)
[2022-10-29] MEDS: Lantiseptic Ointment 130 GM JAR TOP SCH ×2 (08:21→20:54)
[2022-10-29] MEDS: Clotrimazole 1% Cream 15 GM TUBE TOP SCH ×2 (08:26→20:54)
[2022-10-29] MEDS: Furosemide 20 MG TAB PO SCH (12:18)
[2022-10-29 12:19] VITALS: BMI 25.1
[2022-10-29] MEDS: traZODone HCl 50 MG TAB PO SCH (22:08)
[2022-10-29] MEDS: Gabapentin 300 MG CAP PO SCH (22:19)
[2022-10-30] MEDS: Levothyroxine Sodium 100 MCG TAB PO SCH (05:10)
[2022-10-30 05:39] LABS: INR-International Normal Ratio 2.9; Prothrombin Time 31.3 sec (12.0-14.7)
[2022-10-30] MEDS: Midodrine HCl 5 MG TAB PO SCH ×3 (09:50→21:39)
[2022-10-30] MEDS: Carbidopa/Levodopa 25-100 mg Tablet PO SCH ×3 (09:50→21:39)
[2022-10-30] MEDS: Cholecalciferol 1,000 UNITS (25 MCG) TAB PO SCH ×2 (09:50→21:39)
[2022-10-30] MEDS: busPIRone HCl 5 MG TAB PO SCH ×2 (09:50→17:05)
[2022-10-30] MEDS: Amiodarone 200 MG TAB PO SCH (09:50)
[2022-10-30] MEDS: Lantiseptic Ointment 130 GM JAR TOP SCH ×2 (09:56→21:41)
[2022-10-30] MEDS: Lansoprazole 3 MG/ML ORAL SUSPENSION PO SCH (10:02)
[2022-10-30] MEDS: Clotrimazole 1% Cream 15 GM TUBE TOP SCH ×2 (10:02→21:40)
[2022-10-30] MEDS: Furosemide 20 MG TAB PO SCH (12:10)
[2022-10-30] MEDS ORDERED: Warfarin Sodium 2 MG TAB PO SCH (17:00)
[2022-10-30] MEDS: traZODone HCl 50 MG TAB PO SCH (21:38)
[2022-10-30] MEDS: Melatonin 3 MG TAB PO PRN (21:38)
[2022-10-30] MEDS: Gabapentin 300 MG CAP PO SCH (21:39)
[2022-10-31] MEDS: Levothyroxine Sodium 100 MCG TAB PO SCH (05:17)
[2022-10-31 06:10] LABS: Hemoglobin 11.9 g/dL (14.0-18.0); Platelet Count 95 10x3/uL (130-400)
[2022-10-31 06:17] LABS: INR-International Normal Ratio 2.1; Prothrombin Time 24.5 sec (12.0-14.7)
[2022-10-31] MEDS: Midodrine HCl 5 MG TAB PO SCH ×3 (09:25→20:39)
[2022-10-31] MEDS: Cholecalciferol 1,000 UNITS (25 MCG) TAB PO SCH ×2 (09:25→20:39)
[2022-10-31] MEDS: Amiodarone 200 MG TAB PO SCH (09:25)
[2022-10-31] MEDS: Carbidopa/Levodopa 25-100 mg Tablet PO SCH ×3 (09:25→20:39)
[2022-10-31] MEDS: busPIRone HCl 5 MG TAB PO SCH ×2 (09:25→17:29)
[2022-10-31] MEDS: Lansoprazole 3 MG/ML ORAL SUSPENSION PO SCH (09:27)
[2022-10-31] MEDS: Lantiseptic Ointment 130 GM JAR TOP SCH ×2 (09:36→20:40)
[2022-10-31] MEDS: Clotrimazole 1% Cream 15 GM TUBE TOP SCH ×2 (09:42→20:40)
[2022-10-31] MEDS: Furosemide 20 MG TAB PO SCH (12:59)
[2022-10-31] MEDS: Warfarin Sodium 2 MG TAB PO SCH (17:29)
[2022-10-31] MEDS: traZODone HCl 50 MG TAB PO SCH (20:39)
[2022-10-31] MEDS: Gabapentin 300 MG CAP PO SCH (20:39)
[2022-10-31] MEDS: Melatonin 3 MG TAB PO PRN (20:39)
[2022-11-01] MEDS: Levothyroxine Sodium 100 MCG TAB PO SCH (05:34)
[2022-11-01 05:45] LABS: INR-International Normal Ratio 2.4; Prothrombin Time 27.3 sec (12.0-14.7)
[2022-11-01] MEDS: Midodrine HCl 5 MG TAB PO SCH ×3 (09:55→21:57)
[2022-11-01] MEDS: busPIRone HCl 5 MG TAB PO SCH ×2 (09:55→17:28)
[2022-11-01] MEDS: Lansoprazole 3 MG/ML ORAL SUSPENSION PO SCH (09:56)
[2022-11-01] MEDS: Amiodarone 200 MG TAB PO SCH (09:56)
[2022-11-01] MEDS: Carbidopa/Levodopa 25-100 mg Tablet PO SCH ×3 (09:56→21:57)
[2022-11-01] MEDS: Cholecalciferol 1,000 UNITS (25 MCG) TAB PO SCH ×2 (09:56→21:57)
[2022-11-01] MEDS: Lantiseptic Ointment 130 GM JAR TOP SCH ×2 (09:57→21:59)
[2022-11-01] MEDS: Clotrimazole 1% Cream 15 GM TUBE TOP SCH ×2 (09:57→21:59)
[2022-11-01] MEDS: Furosemide 20 MG TAB PO SCH (13:08)
[2022-11-01] MEDS: Warfarin Sodium 2 MG TAB PO SCH (17:28)
[2022-11-01] MEDS: Gabapentin 300 MG CAP PO SCH (21:57)
[2022-11-01] MEDS: traZODone HCl 50 MG TAB PO SCH (21:57)
[2022-11-02 05:28] LABS: INR-International Normal Ratio 2.5; Prothrombin Time 27.7 sec (12.0-14.7)
[2022-11-02] MEDS: Levothyroxine Sodium 100 MCG TAB PO SCH (06:17)
[2022-11-02] MEDS: Lansoprazole 3 MG/ML ORAL SUSPENSION PO SCH (08:29)
[2022-11-02] MEDS: Midodrine HCl 5 MG TAB PO SCH ×3 (08:29→20:21)
[2022-11-02] MEDS: Carbidopa/Levodopa 25-100 mg Tablet PO SCH ×3 (08:30→20:20)
[2022-11-02] MEDS: Cholecalciferol 1,000 UNITS (25 MCG) TAB PO SCH ×2 (08:30→20:20)
[2022-11-02] MEDS: Lantiseptic Ointment 130 GM JAR TOP SCH ×2 (08:30→20:23)
[2022-11-02] MEDS: Clotrimazole 1% Cream 15 GM TUBE TOP SCH ×2 (08:30→20:22)
[2022-11-02] MEDS: busPIRone HCl 5 MG TAB PO SCH ×2 (08:30→17:52)
[2022-11-02] MEDS: Amiodarone 200 MG TAB PO SCH (08:30)
[2022-11-02] MEDS: Furosemide 20 MG TAB PO SCH (12:18)
[2022-11-02] MEDS: Warfarin Sodium 2 MG TAB PO SCH (17:52)
[2022-11-02] MEDS: Gabapentin 300 MG CAP PO SCH (20:21)
[2022-11-02] MEDS: traZODone HCl 50 MG TAB PO SCH (20:21)
[2022-11-03 05:36] LABS: INR-International Normal Ratio 2.5; Prothrombin Time 27.9 sec (12.0-14.7)
[2022-11-03] MEDS: Levothyroxine Sodium 100 MCG TAB PO SCH (05:50)
[2022-11-03] MEDS: busPIRone HCl 5 MG TAB PO SCH ×2 (09:38→17:28)
[2022-11-03] MEDS: Carbidopa/Levodopa 25-100 mg Tablet PO SCH ×3 (09:38→20:23)
[2022-11-03] MEDS: Cholecalciferol 1,000 UNITS (25 MCG) TAB PO SCH ×2 (09:39→20:22)
[2022-11-03] MEDS: Midodrine HCl 5 MG TAB PO SCH ×3 (09:39→20:22)
[2022-11-03] MEDS: Amiodarone 200 MG TAB PO SCH (09:40)
[2022-11-03] MEDS: Lansoprazole 3 MG/ML ORAL SUSPENSION PO SCH (09:41)
[2022-11-03] MEDS: Lantiseptic Ointment 130 GM JAR TOP SCH ×2 (09:42→20:21)
[2022-11-03] MEDS: Clotrimazole 1% Cream 15 GM TUBE TOP SCH ×2 (09:42→20:22)
[2022-11-03] MEDS: Furosemide 20 MG TAB PO SCH (12:46)
[2022-11-03] MEDS: Warfarin Sodium 2 MG TAB PO SCH (17:28)
[2022-11-03] MEDS: Gabapentin 300 MG CAP PO SCH (20:22)
[2022-11-03] MEDS: Melatonin 3 MG TAB PO PRN (20:23)
[2022-11-03] MEDS: traZODone HCl 50 MG TAB PO SCH (20:23)
[2022-11-04] MEDS: Levothyroxine Sodium 100 MCG TAB PO SCH (05:31)
[2022-11-04] MEDS: Carbidopa/Levodopa 25-100 mg Tablet PO SCH ×3 (09:25→20:40)
[2022-11-04] MEDS: Amiodarone 200 MG TAB PO SCH (09:25)
[2022-11-04] MEDS: Midodrine HCl 5 MG TAB PO SCH ×3 (09:25→20:40)
[2022-11-04] MEDS: Cholecalciferol 1,000 UNITS (25 MCG) TAB PO SCH ×2 (09:25→20:40)
[2022-11-04] MEDS: busPIRone HCl 5 MG TAB PO SCH ×2 (09:25→15:43)
[2022-11-04] MEDS: Lansoprazole 3 MG/ML ORAL SUSPENSION PO SCH (09:26)
[2022-11-04] MEDS: Clotrimazole 1% Cream 15 GM TUBE TOP SCH ×2 (09:29→20:41)
[2022-11-04] MEDS: Lantiseptic Ointment 130 GM JAR TOP SCH ×2 (09:29→20:39)
[2022-11-04] MEDS: Furosemide 20 MG TAB PO SCH (13:15)
[2022-11-04] MEDS: Warfarin Sodium 2 MG TAB PO SCH ×3 (17:10→18:09)
[2022-11-04] MEDS: traZODone HCl 50 MG TAB PO SCH (20:40)
[2022-11-04] MEDS: Gabapentin 300 MG CAP PO SCH (20:40)
[2022-11-04] MEDS: Melatonin 3 MG TAB PO PRN (20:41)
[2022-11-05] MEDS: Levothyroxine Sodium 100 MCG TAB PO SCH (05:00)
[2022-11-05 05:37] LABS: Prothrombin Time 23.8 sec (12.0-14.7)
[2022-11-05] MEDS: Carbidopa/Levodopa 25-100 mg Tablet PO SCH ×3 (09:21→20:27)
[2022-11-05] MEDS: Midodrine HCl 5 MG TAB PO SCH ×2 (09:21→17:40)
[2022-11-05] MEDS: Lansoprazole 3 MG/ML ORAL SUSPENSION PO SCH ×2 (09:21→09:47)
[2022-11-05] MEDS: Amiodarone 200 MG TAB PO SCH (09:22)
[2022-11-05] MEDS: busPIRone HCl 5 MG TAB PO SCH ×2 (09:22→17:40)
[2022-11-05] MEDS: Cholecalciferol 1,000 UNITS (25 MCG) TAB PO SCH ×2 (09:22→20:28)
[2022-11-05] MEDS: Lantiseptic Ointment 130 GM JAR TOP SCH ×2 (09:36→20:29)
[2022-11-05] MEDS: Clotrimazole 1% Cream 15 GM TUBE TOP SCH ×2 (09:37→20:29)
[2022-11-05] MEDS: Furosemide 20 MG TAB PO SCH (12:17)
[2022-11-05] MEDS: Warfarin Sodium 2 MG TAB PO SCH (17:40)
[2022-11-05] MEDS: traZODone HCl 50 MG TAB PO SCH (20:28)
[2022-11-05] MEDS: Gabapentin 300 MG CAP PO SCH (20:28)
[2022-11-06] MEDS: Levothyroxine Sodium 100 MCG TAB PO SCH (05:34)
[2022-11-06] MEDS: Midodrine HCl 5 MG TAB PO SCH ×3 (05:34→17:12)
[2022-11-06] MEDS: Lansoprazole 3 MG/ML ORAL SUSPENSION PO SCH (08:07)
[2022-11-06] MEDS: busPIRone HCl 5 MG TAB PO SCH ×2 (08:08→16:42)
[2022-11-06] MEDS: Cholecalciferol 1,000 UNITS (25 MCG) TAB PO SCH ×2 (08:08→22:07)
[2022-11-06] MEDS: Carbidopa/Levodopa 25-100 mg Tablet PO SCH ×3 (08:08→22:07)
[2022-11-06] MEDS: Amiodarone 200 MG TAB PO SCH (08:08)
[2022-11-06] MEDS: Clotrimazole 1% Cream 15 GM TUBE TOP SCH ×2 (08:09→22:10)
[2022-11-06] MEDS: Lantiseptic Ointment 130 GM JAR TOP SCH ×2 (08:09→22:09)
[2022-11-06] MEDS: Furosemide 20 MG TAB PO SCH (12:25)
[2022-11-06] MEDS: Warfarin Sodium 2 MG TAB PO SCH (16:42)
[2022-11-06] MEDS: Gabapentin 300 MG CAP PO SCH (22:07)
[2022-11-06] MEDS: traZODone HCl 50 MG TAB PO SCH (22:07)
[2022-11-07 05:21] LABS: Hemoglobin 12.3 g/dL (14.0-18.0); Mean Corpuscular HGB CONC 31.3 g/dL (32.0-36.0); Mean Corpuscular Hemoglobin 29.6 pg (27.0-31.0); Mean Corpuscular Volume 94.5 fl (78.0-98.0); Mean Platelet Volume 15.2 fL (7.4-10.4); Platelet Count 111 10x3/uL (130-400); RBC Distribution Width 13.4 % (11.5-14.5); Red Blood Cell (RBC) Count 4.17 mill/uL (4.70-6.10); White Blood Cell (WBC) Count 6.9 10x3/uL (4.8-10.8)
[2022-11-07 05:28] LABS: Prothrombin Time 23.2 sec (12.0-14.7)
[2022-11-07] MEDS: Midodrine HCl 5 MG TAB PO SCH ×3 (05:33→17:04)
[2022-11-07] MEDS: Levothyroxine Sodium 100 MCG TAB PO SCH (05:34)
[2022-11-07 05:35] LABS: Anion Gap 14 mmol/L (10-20); BUN (Urea Nitrogen) 28 mg/dL (8.4-25.7); Calc. Creatinine Clearance 79 mL/min (70-130); Carbon Dioxide 26 mmol/L (23-31); Chloride 104 mmol/L (98-107); Estimated GFR 89; Glucose 83 mg/dL (83-110); Potassium 4.1 mmol/L (3.5-5.1); Sodium 140 mmol/L (136-145)
[2022-11-07] MEDS: Amiodarone 200 MG TAB PO SCH (09:19)
[2022-11-07] MEDS: Carbidopa/Levodopa 25-100 mg Tablet PO SCH ×3 (09:19→21:22)
[2022-11-07] MEDS: Clotrimazole 1% Cream 15 GM TUBE TOP SCH ×2 (09:19→21:23)
[2022-11-07] MEDS: Cholecalciferol 1,000 UNITS (25 MCG) TAB PO SCH ×2 (09:19→21:23)
[2022-11-07] MEDS: Lansoprazole 3 MG/ML ORAL SUSPENSION PO SCH (09:19)
[2022-11-07] MEDS: busPIRone HCl 5 MG TAB PO SCH ×2 (09:19→17:04)
[2022-11-07] MEDS: Lantiseptic Ointment 130 GM JAR TOP SCH ×2 (09:20→21:24)
[2022-11-07] MEDS: Furosemide 20 MG TAB PO SCH (12:39)
[2022-11-07] MEDS ORDERED: Mag-Al Plus 1200 MG/1200 MG/120 MG/30 ML UDCUP PO PRN (15:33)
[2022-11-07] MEDS: Warfarin Sodium 2 MG TAB PO SCH (17:05)
[2022-11-07] MEDS: Gabapentin 300 MG CAP PO SCH (21:22)
[2022-11-07] MEDS: traZODone HCl 50 MG TAB PO SCH (21:23)
[2022-11-08] MEDS: Midodrine HCl 5 MG TAB PO SCH ×3 (05:42→17:17)
[2022-11-08] MEDS: Levothyroxine Sodium 100 MCG TAB PO SCH (05:42)
[2022-11-08] MEDS: busPIRone HCl 5 MG TAB PO SCH ×2 (09:05→17:16)
[2022-11-08] MEDS: Cholecalciferol 1,000 UNITS (25 MCG) TAB PO SCH ×2 (09:05→20:54)
[2022-11-08] MEDS: Amiodarone 200 MG TAB PO SCH (09:05)
[2022-11-08] MEDS: Carbidopa/Levodopa 25-100 mg Tablet PO SCH ×3 (09:05→20:55)
[2022-11-08] MEDS: Lansoprazole 3 MG/ML ORAL SUSPENSION PO SCH (09:06)
[2022-11-08] MEDS: Lantiseptic Ointment 130 GM JAR TOP SCH ×2 (09:06→20:58)
[2022-11-08] MEDS: Clotrimazole 1% Cream 15 GM TUBE TOP SCH ×2 (09:06→20:56)
[2022-11-08] MEDS: Furosemide 20 MG TAB PO SCH (12:51)
[2022-11-08] MEDS: Warfarin Sodium 2 MG TAB PO SCH (17:17)
[2022-11-08] MEDS: Gabapentin 300 MG CAP PO SCH (20:54)
[2022-11-08] MEDS: traZODone HCl 50 MG TAB PO SCH (20:55)
[2022-11-08] MEDS ORDERED: Artificial Tear Sol 15 ML BOT EA EYE PRN (21:58)
[2022-11-09] MEDS: Levothyroxine Sodium 100 MCG TAB PO SCH (05:33)
[2022-11-09] MEDS: Midodrine HCl 5 MG TAB PO SCH ×3 (05:33→16:35)
[2022-11-09 05:48] LABS: Prothrombin Time 23.2 sec (12.0-14.7)
[2022-11-09] MEDS: Amiodarone 200 MG TAB PO SCH (09:04)
[2022-11-09] MEDS: Carbidopa/Levodopa 25-100 mg Tablet PO SCH ×3 (09:04→21:27)
[2022-11-09] MEDS: busPIRone HCl 5 MG TAB PO SCH ×2 (09:04→16:35)
[2022-11-09] MEDS: Lansoprazole 3 MG/ML ORAL SUSPENSION PO SCH (09:05)
[2022-11-09] MEDS: Cholecalciferol 1,000 UNITS (25 MCG) TAB PO SCH ×2 (09:05→21:28)
[2022-11-09] MEDS: Clotrimazole 1% Cream 15 GM TUBE TOP SCH ×2 (09:05→21:29)
[2022-11-09] MEDS: Lantiseptic Ointment 130 GM JAR TOP SCH ×2 (09:06→21:29)
[2022-11-09] MEDS: Furosemide 20 MG TAB PO SCH (12:47)
[2022-11-09] MEDS: Warfarin Sodium 2 MG TAB PO SCH (16:36)
[2022-11-09] MEDS: traZODone HCl 50 MG TAB PO SCH (21:27)
[2022-11-09] MEDS: Gabapentin 300 MG CAP PO SCH (21:28)
[2022-11-10] MEDS: Midodrine HCl 5 MG TAB PO SCH ×3 (06:09→17:12)
[2022-11-10] MEDS: Levothyroxine Sodium 100 MCG TAB PO SCH (06:10)
[2022-11-10] MEDS: Lansoprazole 3 MG/ML ORAL SUSPENSION PO SCH (08:12)
[2022-11-10] MEDS: Amiodarone 200 MG TAB PO SCH (08:12)
[2022-11-10] MEDS: Carbidopa/Levodopa 25-100 mg Tablet PO SCH ×3 (08:12→20:24)
[2022-11-10] MEDS: Cholecalciferol 1,000 UNITS (25 MCG) TAB PO SCH ×2 (08:12→20:23)
[2022-11-10] MEDS: busPIRone HCl 5 MG TAB PO SCH ×2 (08:12→16:57)
[2022-11-10] MEDS: Lantiseptic Ointment 130 GM JAR TOP SCH ×2 (08:13→20:25)
[2022-11-10] MEDS: Clotrimazole 1% Cream 15 GM TUBE TOP SCH ×2 (08:13→20:25)
[2022-11-10] MEDS: Furosemide 20 MG TAB PO SCH (11:36)
[2022-11-10] MEDS: Warfarin Sodium 2 MG TAB PO SCH (16:57)
[2022-11-10] MEDS: Melatonin 3 MG TAB PO PRN (20:24)
[2022-11-10] MEDS: traZODone HCl 50 MG TAB PO SCH (20:24)
[2022-11-10] MEDS: Gabapentin 300 MG CAP PO SCH (20:24)
[2022-11-11 05:23] LABS: INR-International Normal Ratio 1.8; Prothrombin Time 21.3 sec (12.0-14.7)
[2022-11-11] MEDS: Levothyroxine Sodium 100 MCG TAB PO SCH (06:09)
[2022-11-11] MEDS: Midodrine HCl 5 MG TAB PO SCH ×2 (06:09→12:07)
[2022-11-11 07:09] VITALS: BP 104/64; TEMP 97.4
[2022-11-11] MEDS: Lansoprazole 3 MG/ML ORAL SUSPENSION PO SCH (08:04)
[2022-11-11] MEDS: busPIRone HCl 5 MG TAB PO SCH (08:05)
[2022-11-11] MEDS: Cholecalciferol 1,000 UNITS (25 MCG) TAB PO SCH (08:05)
[2022-11-11] MEDS: Carbidopa/Levodopa 25-100 mg Tablet PO SCH (08:06)
[2022-11-11] MEDS: Amiodarone 200 MG TAB PO SCH (08:06)
[2022-11-11] MEDS: Lantiseptic Ointment 130 GM JAR TOP SCH (08:07)
[2022-11-11] MEDS: Clotrimazole 1% Cream 15 GM TUBE TOP SCH (08:07)
[2022-11-11] MEDS: Furosemide 20 MG TAB PO SCH (12:06)
[2022-11-11] MEDS ORDERED: Warfarin Sodium 2 MG TAB PO SCH (17:00)
== END 2022-11-11 14:20 | DRG 57 ==
LOC: MADMS 17:45
PROVIDERS: ADMIT Family Medicine; ATTEND Family Medicine
DX: G20 Parkinson's disease (principal); I42.8 Other cardiomyopathies; I48.21 Permanent atrial fibrillation; I50.22 Chronic systolic (congestive) heart failure; R53.81 Other malaise; R53.1 Weakness; I25.10 Atherosclerotic heart disease of native coronary artery without angina pectoris; K21.9 Gastro-esophageal reflux disease without esophagitis; D63.8 Anemia in other chronic diseases classified elsewhere; D69.6 Thrombocytopenia, unspecified; E03.9 Hypothyroidism, unspecified; I95.1 Orthostatic hypotension; F41.9 Anxiety disorder, unspecified; T14.8XXA Other injury of unspecified body region, initial encounter; R13.12 Dysphagia, oropharyngeal phase; Z88.6 Allergy status to analgesic agent; Z95.810 Presence of automatic (implantable) cardiac defibrillator; Z79.01 Long term (current) use of anticoagulants; Z82.49 Family history of ischemic heart disease and other diseases of the circulatory system; Z98.890 Other specified postprocedural states; Z79.899 Other long term (current) drug therapy; Z79.890 Hormone replacement therapy; Z74.01 Bed confinement status; Z20.822 Contact with and (suspected) exposure to COVID-19
CPT/HCPCS: 36415; 80048; 82565; 85014; 85018; 85025; 85027; 85049; 85610; 87811; J1650; U0003; U0005

== ENCOUNTER 2022-11-27 01:05 | Emergency (ER) | payer MEDICARE, BC ==
[2022-11-27] MEDS ORDERED: Acetaminophen 500 MG TAB ONE (01:33)
== END 2022-11-27 03:59 | disposition home or self-care (01) ==
LOC: MADERS 01:05
DX: S00.93XA Contusion of unspecified part of head, initial encounter (principal); I48.91 Unspecified atrial fibrillation; E03.9 Hypothyroidism, unspecified; I95.1 Orthostatic hypotension; K21.9 Gastro-esophageal reflux disease without esophagitis; G20 Parkinson's disease; I50.20 Unspecified systolic (congestive) heart failure; W22.01XA Walked into wall, initial encounter; Y92.129 Unspecified place in nursing home as the place of occurrence of the external cause; Z79.01 Long term (current) use of anticoagulants; Z79.899 Other long term (current) drug therapy
CPT/HCPCS: 70450

== ENCOUNTER 2022-12-11 07:13 | Outpatient (CLI) | payer MEDICARE, BC ==
[2022-12-11 09:33] LABS: INR-International Normal Ratio 2.1; Prothrombin Time 24.5 sec (12.0-14.7)
== END 2022-12-11 07:14 | disposition home or self-care (01) ==
LOC: MADLAB 07:13
DX: Z51.81 Encounter for therapeutic drug level monitoring (principal); Z95.810 Presence of automatic (implantable) cardiac defibrillator; Z79.01 Long term (current) use of anticoagulants
CPT/HCPCS: 85610